=== PATIENT | female | born 1950 | race Caucasian/White ===

== ENCOUNTER → 2017-09-22 | Outpatient (CLI) | payer MEDICARE, OTHER ==
[~2017-09-22] MED LIST: ALB18R INH; ATOR20TA65 PO; CALC-896 PO; CHOL100058 PO; CYAN1TAB68 PO; CYAN25004; DIAZ1KIT RC; INHALER; MEC125 PO; MEC25 PO; MON4 PO; MULT1TAB64 PO; ONDA4TAB PO
--- NOTE | 2017-09-22 14:47 | RADIOLOGY IMAGING REPORT ---
FACILITY: [facility] - [place] PATIENT NAME: KYLEE HARRIS : [id number] MR: [id number] V: [id number] EXAM DATE: [id number] ORDERING PHYSICIAN: SHAKEEL MENDEZ TECHNOLOGIST: Ana Reed PROCEDURE:BILATERAL DIGITAL SCREENING MAMMOGRAM WITH CAD ASSISTED INTERPRETATION & 3D TOMOSYNTHESIS COMPARISON:Prior mammograms dated 09/20/16, 09/18/15, 07/10/14, 06/29/13, 09/22/12, 09/20/12 INDICATIONS:screening FINDINGS: Dense heterogeneous fibroglandular tissue is seen throughout the breasts. The parenchymal pattern has remained stable allowing for difference in mammographic technique & patient positioning. There is no evidence of malignant appearing mass, malignant appearing calcification or other secondary sign of malignancy in either breast. DIAGNOSTIC CATEGORY 1--NEGATIVE. RECOMMENDATIONS: ROUTINE MAMMOGRAM AND CLINICAL EVALUATION. IMPRESSION: BIRADS 1: Negative. No significant abnormality is seen. Dictated by: Alla Castano M.D. on 09/22/2017 at 14:03 Transcribed by: KOFI on 09/22/2017 at 14:33 Approved by: Alla Castano M.D. on 09/22/2017 at 14:46 [facility]
== END ==
LOC: MAMO 01:12
PROVIDERS: ATTEND Family Medicine
DX: Z12.31 Encounter for screening mammogram for malignant neoplasm of breast (principal)
CPT/HCPCS: 77063; 77067

== ENCOUNTER → 2017-11-30 | Outpatient (CLI) | payer MEDICARE, OTHER ==
--- NOTE | 2017-11-30 12:55 | RADIOLOGY IMAGING REPORT ---
FACILITY: [facility] PATIENT NAME: Narcisa Wang : 1950 MR: [id number] V: [id number] EXAM DATE: ORDERING PHYSICIAN: SHAKEEL MENDEZ TECHNOLOGIST: Location: [facility] Patient: Narcisa Wang : 1950 Visit/Account:[id number] Date of Sevice: 11/30/2017 Exam type: LUMBAR SPINE 2 OR 3 VIEW History: Low back pain Comparison: None. Findings: There are five nonrib-bearing lumbar-type vertebral bodies present. There is no evidence of acute fr actures or subluxations. Small anterior osteophytes are seen at L3, L4 and L5. There are surgical c lips right upper quadrant of abdomen. IMPRESSION: 1. Mild degenerative change lumbar spine as described above. If Patient's pain continues MR may be helpful Report Dictated By: Alla Castano MD at 11/30/2017 12:50 PM Report E-Signed By: Alla Castano MD at 11/30/2017 12:51 PM WSN:[email or web address]
== END ==
LOC: RAD 11:22
PROVIDERS: ATTEND Family Medicine
DX: M51.36 Other intervertebral disc degeneration, lumbar region (principal)
CPT/HCPCS: 72100

== ENCOUNTER → 2017-12-08 | Outpatient (CLI) | payer MEDICARE, OTHER ==
--- NOTE | 2017-12-09 14:06 | RADIOLOGY IMAGING REPORT ---
FAC[place] [facility] [place]IENT NAME: Narcisa Wang : 1950 MR: [id number] V: [id number] EXAM DATE: ORDERING PHYSICIAN: SHAKEEL MENDEZ TECHNOLOGIST: Location: [facility] - [place] Patient: Narcisa Wang : 1950 Visit/Account:[id number] Date of Sevice: 12/08/2017 DEXA Scan HISTORY: Osteoporosis screening. COMPARISON: 12/01/2016. LUMBAR SPINE: The bone mineral density (BMD) measured from L1-L4 correlates with a Z-score -1.5 and a T-score of - 3.4 which is osteoporosis as defined by the World Health Organization. The corresponding risk of fra cture in the lumbar spine is increased compared with a young adult reference population. This value has decreased by 1.3 % since the prior study. More than 5% change is considered significant. HIP: Bone mineral density (BMD) measured in the Left total hip region correlates with a Z-score -0.3 and a T-score of -1.9 which is osteopenia as defined by the World Health Organization. The corresponding risk of fracture in the hip is increased compared with a young adult reference population. This value has decreased by 1.5 % since the prior study. More than 5% change is considered significant. Bone mineral density (BMD) measured in the Femoral Neck region measures 0.792 g/cm2 is in the osteope debbi range. IMPRESSION: 1. Lumbar spine: Osteoporosis. No significant change 2. Left Total Hip: Osteopenia. No significant change 3. Femoral Neck: Bone Mineral Density is 0.792 g/cm2 The next DEXA scan of this patient should include the following sites: L1-L4 and the left hip. FRAX? WHO Fracture Risk Assessment Tool link: <http://www.shef.ac.uk/FRAX/tool.jsp?locationValue=9> PLEASE NOTE: 1) The World Health Organization defines low BMD as follows: T-score Normal > -1 Osteopenia < -1 and > -2.5 Osteoporosis < -2.5 without fractures Established osteoporosis < -2.5 with fractures 2) In general, you may wish to consider: Diagnosis Treatment Follow-up DEXA Normal BMD Prevention 2-3 years Osteopenia Prevention/therapy 1-2 years Osteoporosis Therapy Yearly 3) Fracture risk estimated from the T-score is more accurate for vertebral fractures (often spontane ous) than for hip fractures. Report Dictated By: Lance Singh MD at 12/09/2017 2:00 PM Report E-Signed By: Lance Singh MD at 12/09/2017 2:03 PM WSN:[email or web address]
== END ==
LOC: RAD 01:45
PROVIDERS: ATTEND Family Medicine
DX: M81.0 Age-related osteoporosis without current pathological fracture (principal); M85.88 Other specified disorders of bone density and structure, other site
CPT/HCPCS: 77080

== ENCOUNTER → 2018-06-26 | Outpatient (CLI) | payer MEDICARE, OTHER ==
--- NOTE | 2018-06-26 17:15 | RADIOLOGY IMAGING REPORT ---
[place] [facility] [place] NAME: Narcisa Wang : 1950 MR: [id number] V: [id number] EXAM DATE: ORDERING PHYSICIAN: RONA TALAMANTES TECHNOLOGIST: Location: [facility] - [place] Patient: Narcisa Wang : 1950 Visit/Account:[id number] Date of Sevice: 06/26/2018 Exam type: CHEST PA LAT History: Cough Comparison: None. Findings: The lungs are free of acute effusions, infiltrates or edema. There is mild hyperinflation of the heriberto gs. The cardiac silhouette is normal in size. The trachea is in midline. There are surgical clips the right upper quadrant abdomen IMPRESSION: 1. Mild hyperinflation of the lungs although no evidence of acute pulmonary consolidation Report Dictated By: Alla Castano MD at 06/26/2018 5:10 PM Report E-Signed By: Alla Castano MD at 06/26/2018 5:11 PM WSN:[email or web address]
== END ==
LOC: RAD 15:22
PROVIDERS: ATTEND Internal Medicine
DX: R05 Cough (principal)
CPT/HCPCS: 71046